=== PATIENT | male | born 1945 | race Caucasian/White ===

== ENCOUNTER → 2019-06-12 | Outpatient (CLI) | payer MEDICARE ==
--- NOTE | 2019-06-12 17:25 | Diagnostic Imaging Report ---
Left foot, 3 views. Left heel, 2 views. History: Diabetic ulcer. Findings: Vascular calcifications are present. There is dorsal soft tissue swelling in the foot. Irregularity of the posterior heel soft tissues is noted. Bones are diffusely osteopenic. There is no evidence of acute fracture or dislocation. There are slightly lytic appearance along the plantar aspect of the calcaneus. Degenerative changes are present within the toes. IMPRESSION: Lytic appearance in the calcaneus concerning for osteomyelitis. Consider correlation with nuclear medicine bone scan. Signed by: Jac Alvarado on 06/12/2019 5:21 PM
== END ==
LOC: CARD 13:56
PROVIDERS: ATTEND Family Medicine Adult Medicine
DX: E11.621 Type 2 diabetes mellitus with foot ulcer (principal); L97.421 Non-pressure chronic ulcer of left heel and midfoot limited to breakdown of skin; I73.9 Peripheral vascular disease, unspecified
CPT/HCPCS: 93922; 93925; 93970

== ENCOUNTER 2019-06-26 10:58 | Outpatient (RCR) | payer MEDICARE ==
[~2019-06-26 10:58] MED LIST: AMMONIUM LACTATE 12% LOTION 225GM BTL ONE; LIDOCAINE/PRILOCAINE 2.5-2.5% KIT ONE
[2019-06-26] MEDS ORDERED: AMMONIUM LACTATE 12% LOTION 225GM BTL ONE (19:04)
== END 2019-06-28 ==
LOC: WCC 10:58
PROVIDERS: ATTEND Family Medicine Adult Medicine
DX: E11.621 Type 2 diabetes mellitus with foot ulcer (principal); E11.69 Type 2 diabetes mellitus with other specified complication; L97.421 Non-pressure chronic ulcer of left heel and midfoot limited to breakdown of skin; S51.802A Unspecified open wound of left forearm, initial encounter; S51.801A Unspecified open wound of right forearm, initial encounter; R60.0 Localized edema; I73.9 Peripheral vascular disease, unspecified; I87.2 Venous insufficiency (chronic) (peripheral); M10.9 Gout, unspecified; N18.6 End stage renal disease; I10 Essential (primary) hypertension; D50.9 Iron deficiency anemia, unspecified; E66.3 Overweight; G99.0 Autonomic neuropathy in diseases classified elsewhere; I25.84 Coronary atherosclerosis due to calcified coronary lesion; W18.49XA Other slipping, tripping and stumbling without falling, initial encounter
CPT/HCPCS: 36415; 82948

== ENCOUNTER → 2019-07-03 | Outpatient (CLI) | payer MEDICARE ==
--- NOTE | 2019-07-03 19:17 | Diagnostic Imaging Report ---
Bone Scan, three-phase - feet and ankles Reason for exam: Diabetic foot ulcer over left heel; concern for osteomyelitis Radiopharmaceutical: Tc-99m MDP 27.5 mCi Comparison: Radiographs left heel and left foot 06/12/2019 Following intravenous administration of the radiopharmaceutical, dynamic flow and immediate blood pool images of the feet and ankles followed by 3-hour delayed spot images were obtained. Flow and blood pool images in the plantar projection show diffusely increased tracer in the left foot and ankle without focal abnormality.. The delayed planar images show focal markedly increased tracer in the soft tissue overlying the left heel posteriorly without focal increased tracer in the calcaneus. The right foot has the same appearance without the presence of hyperemia. Impression: No convincing scan evidence of osteomyelitis involving the left calcaneus. Signed by: Dr. Daisy Foreman M.D. on 07/03/2019 7:14 PM
== END ==
LOC: NM 09:21
PROVIDERS: ATTEND Family Medicine Adult Medicine
DX: E11.621 Type 2 diabetes mellitus with foot ulcer (principal); L97.421 Non-pressure chronic ulcer of left heel and midfoot limited to breakdown of skin
CPT/HCPCS: 78315; A9503

== ENCOUNTER 2019-07-24 13:13 | Outpatient (RCR) | payer MEDICARE ==
[~2019-07-24 13:13] MED LIST changes: +LIDOCAINE VISC 2% SOLN 15 ML UDC ONE; +MINERAL OIL/PETROLAT/GLYCERI 6OZ BTL ONE
[2019-07-24] MEDS ORDERED: TRIAMCINOLONE ACET 0.1% CREAM 15 GM TUBE ONE (14:34)
[2019-07-24] MEDS ORDERED: LIDOCAINE/PRILOCAINE 2.5-2.5% KIT ONE (14:34)
[2019-07-24] MEDS ORDERED: MUPIROCIN 2% OINT 22 GM TUBE ONE (14:34)
== END 2019-07-28 ==
LOC: WCC 13:13
PROVIDERS: ATTEND Family Medicine Adult Medicine
DX: E11.621 Type 2 diabetes mellitus with foot ulcer (principal); L97.421 Non-pressure chronic ulcer of left heel and midfoot limited to breakdown of skin; R60.0 Localized edema; D50.9 Iron deficiency anemia, unspecified; E11.69 Type 2 diabetes mellitus with other specified complication; E66.3 Overweight; G99.0 Autonomic neuropathy in diseases classified elsewhere; I10 Essential (primary) hypertension; I25.84 Coronary atherosclerosis due to calcified coronary lesion; I73.9 Peripheral vascular disease, unspecified; I87.2 Venous insufficiency (chronic) (peripheral); M10.9 Gout, unspecified; N18.6 End stage renal disease; W18.49XA Other slipping, tripping and stumbling without falling, initial encounter

== ENCOUNTER 2019-07-31 13:16 | Outpatient (RCR) | payer MEDICARE ==
[~2019-07-31 13:16] MED LIST changes: -AMMONIUM LACTATE 12% LOTION 225GM BTL ONE; -LIDOCAINE VISC 2% SOLN 15 ML UDC ONE; -MINERAL OIL/PETROLAT/GLYCERI 6OZ BTL ONE
== END 2019-08-28 ==
LOC: WCC 13:16
PROVIDERS: ATTEND Family Medicine Adult Medicine
DX: E11.621 Type 2 diabetes mellitus with foot ulcer (principal); E11.69 Type 2 diabetes mellitus with other specified complication; L89.151 Pressure ulcer of sacral region, stage 1; L97.421 Non-pressure chronic ulcer of left heel and midfoot limited to breakdown of skin; L97.511 Non-pressure chronic ulcer of other part of right foot limited to breakdown of skin; S41.101A Unspecified open wound of right upper arm, initial encounter; S80.811A Abrasion, right lower leg, initial encounter; I73.9 Peripheral vascular disease, unspecified; I87.2 Venous insufficiency (chronic) (peripheral); R60.0 Localized edema; M10.9 Gout, unspecified; N18.6 End stage renal disease; I10 Essential (primary) hypertension; G99.0 Autonomic neuropathy in diseases classified elsewhere; I25.84 Coronary atherosclerosis due to calcified coronary lesion; D50.9 Iron deficiency anemia, unspecified; E66.3 Overweight; W18.49XA Other slipping, tripping and stumbling without falling, initial encounter; Z74.01 Bed confinement status

== ENCOUNTER 2019-09-23 11:01 | Outpatient (RCR) | payer MEDICARE ==
[~2019-09-23 11:01] MED LIST changes: +LIDOCAINE VISC 2% SOLN 15 ML UDC ONE; -LIDOCAINE/PRILOCAINE 2.5-2.5% KIT ONE; +MUPIROCIN 2% OINT 22 GM TUBE ONE
[2019-09-23] MEDS ORDERED: LIDOCAINE/PRILOCAINE 2.5-2.5% KIT ONE (14:56)
== END 2019-09-27 ==
LOC: WCC 11:01
PROVIDERS: ATTEND Family Medicine Adult Medicine
DX: E11.621 Type 2 diabetes mellitus with foot ulcer (principal); E11.69 Type 2 diabetes mellitus with other specified complication; L97.421 Non-pressure chronic ulcer of left heel and midfoot limited to breakdown of skin; L97.511 Non-pressure chronic ulcer of other part of right foot limited to breakdown of skin; L97.519 Non-pressure chronic ulcer of other part of right foot with unspecified severity; L89.151 Pressure ulcer of sacral region, stage 1; S41.101A Unspecified open wound of right upper arm, initial encounter; S80.811A Abrasion, right lower leg, initial encounter; R60.0 Localized edema; I73.9 Peripheral vascular disease, unspecified; I87.2 Venous insufficiency (chronic) (peripheral); D50.9 Iron deficiency anemia, unspecified; E66.3 Overweight; G99.0 Autonomic neuropathy in diseases classified elsewhere; N18.6 End stage renal disease; I10 Essential (primary) hypertension; I25.84 Coronary atherosclerosis due to calcified coronary lesion; S90.822A Blister (nonthermal), left foot, initial encounter; W18.49XA Other slipping, tripping and stumbling without falling, initial encounter; Z74.01 Bed confinement status